=== PATIENT | male | born 1985 | race Caucasian/White ===

== ENCOUNTER 2016-09-29 07:55 | Day surgery (SDC) | payer OTHER ==
[~2016-09-29] VITALS: Ht 188 cm; Wt 104.3 kg
--- NOTE | 2016-09-29 10:48 | NUR ---
09/29/16 1048 ElanNicholas cobb PT STATES HE IS HYOPGLYCEMIC. BLOOD SUGER CHECKED, 126.
--- NOTE | 2016-09-29 12:26 | NUR ---
1220 - PT REPORTS "FEELING BETTER" WITH PAIN AT 4-5/10. HE STATES HE WOULD LIKE "MORE TO EAT AND A LITTLE MORE TIME TO SEE IF THE PAIN PILL WORKS." JELLOW, CRACKERS, AND ICE CREAM PROVIDED. PT RESTING. BED RAILS UP. CALL LIGHT WITHIN REACH.
--- NOTE | 2016-09-29 13:42 | NUR ---
MORE ICED WATER GIVEN. PT DENIES ADD'L NEEDS @ THIS TIME.
[2016-09-29] MEDS ORDERED: NORCO 5-325 TA1 EACH PO (14:28)
--- NOTE | 2016-09-29 15:20 | NUR ---
LATE ENTRY 1120: PATIENT BACK IN DAY SURGERY ROOM FROM PACU. C/O PAIN 6-09/07. WANTS TO EAT SOMETHING BEFORE TAKING PAIN PILL. SMALL AMOUNT OF SEROSANGUINOUS DRAINAGE SEEN ON MOUSTACHE DRESSING. IV SITE WNL. SCDs ON. ICE WATER PLACED AT BEDSIDE. CALL LIGHT WITHIN REACH.
--- NOTE | 2016-09-29 15:30 | NUR ---
1410: PATIENT UP TO BATHROOM WITH STAND BY ASSIST. GAIT STEADY. VOID WITHOUT DIFFICULTY. GAIT STEADY BACK TO ROOM. STATES READY TO GO HOME. MOUSTACHE DRESSING CHANGED. 1443: PATIENT DRESSED AND READY TO GO HOME. IV DC'D WNL. DRESSING APPLIED. DISCHARGE INSTRUCTIONS GIVEN TO PATIENT AND FRIEND. PATIENT DISCHARGED VIA WHEELCHAIR WITH FRIEND.
--- NOTE | 2016-11-24 09:33 | OR ---
[facility] [address] [place], [place] [address] Signed DATE OF SERVICE: 09/29/2016 PREOPERATIVE DIAGNOSIS: Bilateral pansinonasal polyposis. POSTOPERATIVE DIAGNOSIS: Bilateral pansinonasal polyposis. PROCEDURE: Bilateral intranasal polypectomy, bilateral pansinusotomies. SURGEON:Jere Renee MD. 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 PREOP HISTORY: Gennaro is a 31-year-old male with a long history of nasal congestion, sinusitis, evidence of polyps. He had CAT and an exam in the office showing extensive sinonasal polyposis. He was taken to the operating room for the above-mentioned procedures. OPERATIVE PROCEDURE AND FINDINGS: After informed consent, the patient was taken to the operating room, placed in supine position, where general LMA anesthesia was induced. The patient and procedure were verified. The patient received preoperative intra nasal oxymetazoline and intravenous Ancef. Preop CT was viewed throughout. Headlight speculum exam of the nasal cavity showed extensive nasal polyps filling the nasal cavity. The left side was approached first. Nasal polyps were removed with Mariaelena followed up into the middle meatus. The anterior ethmoids were opened with polypoid material removed. Posterior ethmoid similar. Nasofrontal area was opened with a curved Mariaelena and polypoid material removed from this area. The sphenoid sinus was opened, p o lypoid material removed from the sphenoid ostium which was widened with the Mariaelena. Middle meatal antrostomy was made with a curving curette, polypoid material removed from the maxillary sinus and antrostomy widened with the Mariaelena. Bleeding was moderate, stopped after the procedure. Packing was placed. A Nelson Stephen coated with Neosporin was placed in the middle meatus, trimmed Merocel pack in the nasal cavity. The right side was then approached, similar findings, similar procedure, quite a bit more polyps on this side. The maxillary sinus was opened, mucopurulent drainage in the sinus along with polyps, specimen sent from the right side separately. Nasofrontal duct opened, anterior posterior ethmoids, sphenoid sinus opened, polypoid material removed from all these areas. Packing was then placed, a Nelson Stephen coated with Neosporin in the middle meatus and a trimmed Merocel pack coated with Neosporin in the nasal cavity. Hemostasis was verified. Packing strings were tied anteriorly over a pad. The pharynx Electronically Signed By: JERE RENEE MD 11/24/16 0933 PATIENT NAME: GENNARO ROSAS OPERATIVE REPORT DATE OF : 83 PHYSICIAN: JERE RENEE MD REPORT #: [id number] REPORT IS CONFIDENTIAL AND NOT TO BE RELEASED WITHOUT AUTHORIZATION [facility] [address] [place] [id number] Signed was suctioned clear of blood and secretions. The patient was then awakened, extubated, transported to recovery room in good condition. No complications. Blood loss around 550 cc. Packing, 2 pieces of Merocel each nostril. Specimen to pathology. No complications. No drains. Jere Renee MD GC/Brigidal /[id number] Electronically Signed By: JERE RENEE MD 11/24/16 0933 PATIENT NAME: GENNARO ROSAS OPERATIVE REPORT DATE OF : 83 PHYSICIAN: JERE RENEE MD REPORT #: [id number] REPORT IS CONFIDENTIAL AND NOT TO BE RELEASED WITHOUT AUTHORIZATION
== END 2016-09-29 14:43 | disposition home or self-care (01) ==
LOC: DS 07:55 → OPS 07:55 → DS 09:30 → OPS 09:30
PROVIDERS: Otolaryngology
PROC: 099W4ZZ Drainage of Right Sphenoid Sinus, Percutaneous Endoscopic Approach (ICD-10-PCS; 2016-09-29)
PROC: 099V4ZZ Drainage of Left Ethmoid Sinus, Percutaneous Endoscopic Approach (ICD-10-PCS; 2016-09-29)
PROC: 099U4ZZ Drainage of Right Ethmoid Sinus, Percutaneous Endoscopic Approach (ICD-10-PCS; 2016-09-29)
PROC: 099X4ZZ Drainage of Left Sphenoid Sinus, Percutaneous Endoscopic Approach (ICD-10-PCS; principal; 2016-09-29 09:30)
DX: J33.8 Other polyp of sinus (principal); J32.8 Other chronic sinusitis; E11.9 Type 2 diabetes mellitus without complications; Z98.890 Other specified postprocedural states
CPT/HCPCS: 00160; J0330; J0461; J0690; J2250; J2704; J3010; J7120